=== PATIENT | male | born 1960 | race Caucasian/White ===

== ENCOUNTER → 2024-06-10 06:38 | Day surgery (SDC) | payer MEDICARE, OTHER, SELFPAY | LOC: GI 06:38 | PROVIDERS: ATTENDING PHYSICIAN Specialist | DX: Z12.11 Encounter for screening for malignant neoplasm of colon (principal); K57.30 Diverticulosis of large intestine without perforation or abscess without bleeding; D12.3 Benign neoplasm of transverse colon | CPT/HCPCS: 45380; 88305 ==

== ENCOUNTER → 2024-07-30 07:10 | Outpatient (REF) | payer MEDICARE, SELFPAY | LOC: MRI 3T 07:10 | PROVIDERS: ATTENDING PHYSICIAN Orthopaedic Surgery | DX: M25.562 Pain in left knee (principal) | CPT/HCPCS: 73721 ==

== ENCOUNTER → 2024-08-03 06:57 | Outpatient (REF) | payer MEDICARE, SELFPAY | LOC: RCS 06:57 | PROVIDERS: ATTENDING PHYSICIAN Internal Medicine Cardiovascular Disease | DX: R55 Syncope and collapse (principal) | CPT/HCPCS: 93306 ==

== ENCOUNTER → 2024-08-05 09:15 | Outpatient (REF) | payer MEDICARE, SELFPAY ==
[2024-08-05 10:41] LABS: Blood Urea Nitrogen 20 mg/dl (9-20); Calcium 9.3 mg/dl (8.4-10.2); Carbon Dioxide 22 mmol/L (22-30); Chloride 105 mmol/L (98-107); Glucose 104 mg/dl (70-99); Potassium 3.9 mmol/L (3.5-5.1); Sodium 144 mmol/L (135-145); eGFR > 60.00
== END ==
LOC: REG 09:15
PROVIDERS: ATTENDING PHYSICIAN Orthopaedic Surgery
DX: Z01.818 Encounter for other preprocedural examination (principal)
CPT/HCPCS: 36415; 80048

== ENCOUNTER 2024-10-09 09:10 | Emergency (ER) | payer MEDICARE, SELFPAY ==
[2024-10-09 09:12] VITALS: BP 163/107
[2024-10-09 09:47] VITALS: BP 152/97
[2024-10-09 09:49] VITALS: BMI 29.5
[2024-10-09 10:12] VITALS: BP 166/99
[2024-10-09 10:14] LABS: % Basophils 0.2 % (0-2); % Immature Granulocytes 0.4 % (0-0.5); % Lymphocytes 5.8 % (20.5-51.1); % Monocytes 3.5 % (1.7-9.3); % Neutrophils 90.1 % (42.2-75.2); Absolute Immature Granulocytes 0.1 10^3/uL (0-0.05); Absolute Lymphocytes 0.8 10^3/uL (1.2-3.4); Absolute Monocytes 0.5 10^3/uL (0.1-0.6); Absolute Neutrophils 11.7 10^3/uL (1.4-6.5); Hematocrit 40.1 % (39.0-52.0); Hemoglobin 12.5 g/dL (13.0-18.0); Mean Corp Hgb Conc. 31.2 g/dL (33.0-37.0); Mean Corpuscular Hgb 19.9 pg (27.0-31.0); Mean Corpuscular Volume 63.8 fL (80.0-94.0); Mean Platelet Volume 9.8 fL (7.4-10.4); Nucleated Red Blood Cells % 0 % (-); Platelet Count 227 10^3/uL (130-400); Red Blood Cell Count 6.29 10^6/uL (4.70-6.10); Red Cell Dist. Width 18.4 % (11.5-14.5)
[2024-10-09 10:29] LABS: ALT (SGPT) 21 U/L (0-50); AST (SGOT) 24 U/L (17-59); Albumin 4.7 g/dl (3.5-5.0); Alkaline Phosphatase 78 U/L (38-126); Blood Urea Nitrogen 31 mg/dl (9-20); Carbon Dioxide 22 mmol/L (22-30); Chloride 108 mmol/L (98-107); Estimated Creatinine Clearance 76 ml/min; Glucose 157 mg/dl (70-99); Lipase 65 U/L (23-300); Potassium 4.1 mmol/L (3.5-5.1); Sodium 143 mmol/L (135-145); Total Bilirubin 0.6 mg/dl (0.2-1.3); Total Protein 7.4 g/dl (6.3-8.2); eGFR > 60.00
[2024-10-09] MEDS: TORADOL 30 MG IV (10:31)
[2024-10-09] MEDS: ZOFRAN 4 MG IV ×2 (10:31→11:30)
[2024-10-09] MEDS: NSS 1000 IV (10:33)
--- NOTE | 2024-10-09 10:36 | ED.GENMED ---
History of Present Illness
General
Chief Complaint: Abdominal Symptoms
Source: patient and spouse
Exam Limitations: none
Time Seen by Provider: 10/09/24 10:05
Nursing documentation reviewed up to this point in time: agreed with
History of Present Illness
History of Present Illness:
64-year-old male past medical history of hypertension diverticulitis presenting to the emergency department today with concerns of lower abdominal pain mainly to the left lower quadrant that started roughly 6 hours prior to arrival while resting at
home. He has had ongoing dry heaves no significant vomiting. No significant diarrhea. Otherwise felt well yesterday. No fevers.
Review of Systems
Review of Systems
Allergies reviewed?: Yes
All Other Systems: ROS reviewed and negative except as documented in HPI and ROS
Phy Exam
Physical Exam
Physical Exam:
GENERAL: Alert , in no apparent distress
EYE: pupils equal and reactive
NECK: Supple, no significant adenopathy.
ENT: o/p clr, mmm.
CARDIAC: Regular rate and rhythm .
LUNGS: Clear breath sounds bilaterally, no acute respiratory distress, no wheezes/rales/rhonchi
ABDOMEN: Left lower quadrant abdominal pain to palpation.
NEUROLOGICAL: Alert and oriented, no focal neuro deficits
SKIN: Warm and dry, skin intact.
MUSCULOSKELETAL: No edema, well perfused.
PSYCH: Normal and appropriate interaction.
Course
Orders/Labs/Results
Orders:
Orders
10/09/24 09:39
IV Insert/Care/Rem.- Treatment PRN
10/09/24 09:55
Complete Blood Count/With Diff Urgent
Comprehensive Metabolic Panel Urgent
Lipase Urgent
10/09/24 10:23
CT Abd/Pel (IV only)-DH only Urgent
Comment:
Reason For Exam: llq pain
0.9% Sodium Chloride 1000 ml [Nss] 1,000 ml IV BOLUS
Ketorolac [Toradol] 30 mg IV NOW STA
Ondansetron Injectable [Zofran] 4 mg IV NOW STA
10/09/24 10:27
Add On- LAB Urgent
Tests Added?: lipase
10/09/24 10:41
Lactic Acid Urgent
10/09/24 11:19
HYDROmorphone [Dilaudid] 0.5 mg .ROUTE .STK-MED ONE
Ondansetron Injectable [Zofran] 4 mg .ROUTE .STK-MED ONE
10/09/24 11:29
Urinalysis Reflex To Culture Urgent
Date Specimen was Collected: 10/09/24
Time Specimen was Collected: 11:27
10/09/24 11:30
Ondansetron Injectable [Zofran] 4 mg IV NOW STA
10/09/24 11:34
HYDROmorphone [Dilaudid] 0.5 mg IV NOW STA
Abnormal Lab Results
10/09/24 10/09/24 10/09/24
09:55 10:41 11:29
WBC 13.0 H 10^3/uL
(4.8-10.8)
RBC 6.29 H 10^6/uL
(4.70-6.10)
Hgb 12.5 L g/dL
(13.0-18.0)
MCV 63.8 L fL
(80.0-94.0)
MCH 19.9 L pg
(27.0-31.0)
MCHC 31.2 L g/dL
(33.0-37.0)
RDW 18.4 H %
(11.5-14.5)
Abs Immat Gran (auto) 0.1 H 10^3/uL
(0-0.05)
Absolute Neuts (auto) 11.7 H 10^3/uL
(1.4-6.5)
Absolute Lymphs (auto) 0.8 L 10^3/uL
(1.2-3.4)
Neutrophils % 90.1 H %
(42.2-75.2)
Lymphocytes % 5.8 L %
(20.5-51.1)
Chloride 108 H mmol/L
(98-107)
BUN 31 H mg/dl
(9-20)
Glucose 157 H mg/dl
(70-99)
Lactic Acid 2.5 H mmol/L
(0.7-2.0)
Urine Glucose 1+ A
(Negative)
10/09/24 09:55
10/09/24 09:55
Vital Signs
Initial and Last Documented VS:
Initial Vital Signs
Temp Pulse Resp BP Pulse Ox
98 F 105 16 163/107 96
10/09/24 09:12 10/09/24 09:12 10/09/24 09:12 10/09/24 09:12 10/09/24 09:12
Last Documented Vital Signs
Temp Pulse Resp BP Pulse Ox
98 F 97 22 131/83 94
10/09/24 09:12 10/09/24 12:30 10/09/24 12:30 10/09/24 12:00 10/09/24 12:15
MDM/Problems Addressed
MDM/Problems Addressed:
64-year-old male presenting to the emergency department today with concerns of left lower quadrant abdominal pain dry heaves without vomiting starting over the past few hours. Upon arrival mildly tachycardic and appears uncomfortable. Tenderness
palpation to left lower quadrant on examination. Slight white count of 13. Plan for CT scan for further assessment. CT scan showing 6 mm left-sided ureteral stone with hydro nephrosis. Labs show slight white count but otherwise no evidence of
infection on urinalysis, normal renal function. Pain control with opioid, nausea medication. Otherwise patient appears stable for discharge Case discussed with urology who will see him in close follow-up. Return precautions given.
*Critical Care Note
Total Time (30-74mins, 75-104mins- exclusive of procedures): Not Applicable
ED Attending Note
-
Portions of this chart may have been created with voice recognition software.� Occasional wrong word or��sound alike� substitutions may have occurred due to the inherent limitations of voice recognition software.
Discharge Plan
Departure
Patient Disposition: Home (Routine Discharge)
Date of Disposition: 10/09/24
Time of Disposition: 14:01
Patient with high blood pressure during this ER visit?: No
Condition: Good
Covid-19: Not Applicable
Discharge Problem:
Kidney stone
Instructions: Kidney Stone, Adult ED
Prescriptions:
New
ondansetron 4 mg tablet,disintegrating
4 mg PO Q6H PRN (Reason: nausea and vomiting) Qty: 7 0RF
tamsulosin [Flomax] 0.4 mg capsule
0.4 mg PO HS Qty: 7 0RF
oxycodone-acetaminophen [Percocet] 5-325 mg tablet
1 tab PO Q6H PRN (Reason: Pain) Qty: 7 0RF
No Action
lisinopril 20 mg tablet
20 mg PO DAILY
amlodipine 5 mg tablet
5 mg PO DAILY
simvastatin 20 mg tablet
20 mg PO DAILY
Referrals:
Brian Machado MD [Active] - Follow up in 5-7 days
UNKNOWN - PT DOES,NOT KNOW [Family Provider] -
Activity Restrictions/Additional Instructions:
You came to the emergency department today with concerns of left-sided abdominal pain. You are found to have a kidney stone. Please take the prescribed medications and follow-up closely with urology. You can give them a call on Saturday for
follow-up. Return for any worsening, new or concerning symptoms.
Interventions
Interventions:
*Risk Screen - Suicide Last Done: 10/09/24 09:14
*Neglect/Abuse Screening Last Done: 10/09/24 09:14
ED- Fall Risk Assessment Last Done: 10/09/24 10:14
*ED COVID-19 Vaccine History Last Done: 10/09/24 09:15
FU-Ijtnlk-Ulfzutdqms Assessment Last Done: 10/09/24 10:14
Discharge Date and Time
Print Language: PORTUGUESE
[2024-10-09 11:05] LABS: Lactic Acid 2.5 mmol/L (0.7-2.0)
[2024-10-09 11:12] VITALS: BP 145/87
[2024-10-09] MEDS: DILAUDID 0.5 MG IV (11:35)
[2024-10-09 11:45] LABS: Urine Albumin Negative (Neg - Trace); Urine Bilirubin Negative (Negative); Urine Character Clear (Clear); Urine Color Yellow; Urine Glucose 1+ (Negative); Urine Ketone Negative (Negative); Urine Leukocyte Negative (Negative); Urine Nitrite Negative (Negative); Urine Occult Blood Negative (Negative); Urine Specific Gravity 1.005 (<1.030); Urine Urobilinogen Negative (Neg - 1+); Urine pH 6.5 (5.0-9.0)
[2024-10-09 12:00] VITALS: BP 131/83
[2024-10-09 13:00] VITALS: BP 131/88
== END 2024-10-09 14:30 | disposition home or self-care (01) ==
LOC: EMR 09:10
PROVIDERS: Physician Assistant; EMERGENCY PHYSICIAN Emergency Medicine
DX: N13.2 Hydronephrosis with renal and ureteral calculous obstruction (principal); I10 Essential (primary) hypertension
CPT/HCPCS: 99284; 74177; 80053; 81003; 83605; 83690; 85025; Q9967

== ENCOUNTER → 2024-10-20 12:02 | Outpatient (REF) | payer MEDICARE, SELFPAY | LOC: RAD 12:02 | PROVIDERS: ATTENDING PHYSICIAN Surgery | DX: N13.2 Hydronephrosis with renal and ureteral calculous obstruction (principal) | CPT/HCPCS: 74018 ==

== ENCOUNTER → 2024-11-10 08:08 | Outpatient (REF) | payer MEDICARE, SELFPAY | LOC: HWRAD 08:08 | PROVIDERS: ATTENDING PHYSICIAN Surgery | DX: N13.2 Hydronephrosis with renal and ureteral calculous obstruction (principal) | CPT/HCPCS: 74176 ==

== ENCOUNTER 2024-11-16 07:49 | Day surgery (SDC) | payer MEDICARE, SELFPAY ==
[2024-11-16] VITALS (9 sets, daily range): BP systolic 119–153; BP diastolic 80–94; BMI 30.1
[2024-11-16] MEDS: DETROL LA 4 MG PO (17:14)
[2024-11-16] MEDS: Pyridium 200 MG PO (17:15)
== END 2024-11-16 18:00 | disposition home or self-care (01) ==
LOC: SDS 07:49
PROVIDERS: ATTENDING PHYSICIAN Surgery
DX: N20.1 Calculus of ureter (principal)
CPT/HCPCS: 52356; 74018; 76000; 82365; A4300; C1758; C1769; C1894; C2617

== ENCOUNTER → 2025-04-23 11:05 | Outpatient (REF) | payer MEDICARE, SELFPAY ==
[2025-04-23 12:28] LABS: Urine Albumin 1+ (Neg - Trace); Urine Bilirubin Negative (Negative); Urine Character Clear (Clear); Urine Color Yellow; Urine Glucose Negative (Negative); Urine Ketone Negative (Negative); Urine Leukocyte Negative (Negative); Urine Nitrite Negative (Negative); Urine Occult Blood Negative (Negative); Urine Specific Gravity 1.025 (<1.030); Urine Urobilinogen Negative (Neg - 1+)
[2025-04-23 12:44] LABS: Urine Bacteria Few (Negative); Urine Mucus Many; Urine Red Blood Cell 0-2 /HPF (0-2); Urine White Cell 0-2 /HPF (0-5)
== END ==
LOC: RAD 11:05
PROVIDERS: ATTENDING PHYSICIAN Surgery
DX: N39.0 Urinary tract infection, site not specified (principal); N20.0 Calculus of kidney
CPT/HCPCS: 74018; 81003; 81015; 87086

== ENCOUNTER → 2025-04-27 14:15 | Outpatient (REF) | payer MEDICARE, SELFPAY | LOC: HWRAD 14:15 | PROVIDERS: ATTENDING PHYSICIAN Surgery | DX: N20.0 Calculus of kidney (principal) | CPT/HCPCS: 76770 ==